=== PATIENT | male | born 1940 | race Caucasian/White ===

== ENCOUNTER → 2017-07-18 | Outpatient (CLI) | payer MEDICARE, OTHER ==
[2016-01-06 10:38] VITALS: BP 141/74
[~2017-07-18] MED LIST: CO Q-10200 MG PO; HCTZ 25MG25 MG PO; LEXAPRO20 MG PO; QUINAPRIL20 MG PO; SIMVASTATIN20 MG PO; TESTOLIN50 MG/ML
== END ==
LOC: LAB 11:45
DX: Z12.11 Encounter for screening for malignant neoplasm of colon (principal)

== ENCOUNTER → 2017-11-19 | Outpatient (CLI) | payer MEDICARE, OTHER ==
[2016-01-06 10:38] VITALS: BP 141/74
== END ==
LOC: LAB 09:10
PROVIDERS: Internal Medicine
DX: I10 Essential (primary) hypertension (principal); I34.1 Nonrheumatic mitral (valve) prolapse

== ENCOUNTER → 2018-08-21 | Outpatient (CLI) | payer MEDICARE, OTHER ==
[2016-01-06 10:38] VITALS: BP 141/74
[2018-08-21 16:33] LABS: BASO # 0.1 (0.02-0.10); EOS # 0.2 (0.04-0.40); EOS % 2.4 % (0.0-4.0); HEMATOCRIT 43.8 % (42.0-52.0); HEMOGLOBIN 14.6 g/dL (13.5-18.0); MEAN CELL VOLUME 93 fl (78-100); MEAN CORPUSCULAR HEMOGLOBIN 31 pg (27-31); MEAN CORPUSCULAR HGB CONC 33 g/dL (33-37); MEAN PLATELET VOLUME 9.5 fl (7.4-10.4); MONO # 0.9 (0.20-0.80); NEU # 4.9 (1.40-6.50); PLATELET COUNT 235 K/mm3 (130-400); RED BLOOD COUNT 4.72 M/mm3 (4.20-5.60); RED CELL DISTRIBUTION WIDTH 12.9 % (11.5-14.5); WHITE BLOOD COUNT 8.1 K/mm3 (4.8-10.8)
[2018-08-21 16:39] LABS: ALBUMIN 4.4 g/dL (3.5-5.0); CALCIUM 9.4 mg/dL (8.4-10.2); POTASSIUM 4.5 mmol/L (3.6-5.0); TOTAL BILIRUBIN 0.8 mg/dL (0.2-1.3); TOTAL PROTEIN 8.1 g/dL (6.3-8.2)
[2018-08-21 17:49] LABS: ERYTHROCYTE SEDIMENTATION RATE 24 mm/hr (0-20)
== END ==
LOC: LAB 16:06
PROVIDERS: Internal Medicine
DX: Z12.5 Encounter for screening for malignant neoplasm of prostate (principal); I10 Essential (primary) hypertension; E78.2 Mixed hyperlipidemia; D64.9 Anemia, unspecified; R73.09 Other abnormal glucose

== ENCOUNTER → 2019-02-26 | Outpatient (CLI) | payer MEDICARE, OTHER ==
[2016-01-06 10:38] VITALS: BP 141/74
[2019-02-26 10:36] LABS: BASO # 0.1 (0.02-0.10); EOS # 0.1 (0.04-0.40); EOS % 1.4 % (0.0-4.0); HEMATOCRIT 43.2 % (42.0-52.0); HEMOGLOBIN 14.2 g/dL (13.5-18.0); LYMPH# 1.8 (1.50-4.00); MEAN CELL VOLUME 94 fl (78-100); MEAN CORPUSCULAR HEMOGLOBIN 31 pg (27-31); MEAN CORPUSCULAR HGB CONC 33 g/dL (33-37); MEAN PLATELET VOLUME 9.4 fl (7.4-10.4); MONO # 0.9 (0.20-0.80); NEU # 6.3 (1.40-6.50); PLATELET COUNT 238 K/mm3 (130-400); RED CELL DISTRIBUTION WIDTH 12.9 % (11.5-14.5); WHITE BLOOD COUNT 9.2 K/mm3 (4.8-10.8)
[2019-02-26 10:42] LABS: POTASSIUM 4.3 mmol/L (3.5-5.1)
[2019-02-26 10:43] LABS: ALBUMIN 3.9 g/dL (3.4-4.8)
[2019-02-26 10:44] LABS: CALCIUM 9.2 mg/dL (8.3-10.5)
[2019-02-26 10:45] LABS: TOTAL PROTEIN 7.4 g/dL (6.2-8.1)
[2019-02-26 10:47] LABS: TOTAL BILIRUBIN 1.2 mg/dL (0.2-1.2)
[2019-02-26 11:59] LABS: ERYTHROCYTE SEDIMENTATION RATE 20 mm/hr (0-20)
== END ==
LOC: LAB 10:07
PROVIDERS: Internal Medicine
DX: Z12.5 Encounter for screening for malignant neoplasm of prostate (principal); Z12.11 Encounter for screening for malignant neoplasm of colon; I10 Essential (primary) hypertension; E78.2 Mixed hyperlipidemia; D50.8 Other iron deficiency anemias; I34.1 Nonrheumatic mitral (valve) prolapse; R73.01 Impaired fasting glucose

== ENCOUNTER → 2020-04-04 | Outpatient (CLI) | payer MEDICARE, OTHER ==
[2016-01-06 10:38] VITALS: BP 141/74
[2020-04-04 09:19] LABS: BASO # 0.1 (0.02-0.10); EOS # 0.2 (0.04-0.40); EOS % 1.7 % (0.0-4.0); HEMATOCRIT 46.2 % (42.0-52.0); HEMOGLOBIN 15.1 g/dL (13.5-18.0); LYMPH# 1.9 (1.50-4.00); MEAN CELL VOLUME 94 fl (78-100); MEAN CORPUSCULAR HEMOGLOBIN 31 pg (27-31); MEAN CORPUSCULAR HGB CONC 33 g/dL (33-37); MEAN PLATELET VOLUME 9.4 fl (7.4-10.4); MONO # 0.9 (0.20-0.80); NEU # 7.1 (1.40-6.50); PLATELET COUNT 275 K/mm3 (130-400); RED BLOOD COUNT 4.92 M/mm3 (4.20-5.60); RED CELL DISTRIBUTION WIDTH 12.8 % (11.5-14.5); WHITE BLOOD COUNT 10.1 K/mm3 (4.8-10.8)
[2020-04-04 10:25] LABS: ALBUMIN 4.2 g/dL (3.4-4.8); POTASSIUM 4.9 mmol/L (3.5-5.1)
[2020-04-04 10:27] LABS: CALCIUM 9.2 mg/dL (8.3-10.5)
[2020-04-04 10:28] LABS: TOTAL PROTEIN 8.1 g/dL (6.2-8.1)
[2020-04-04 10:30] LABS: TOTAL BILIRUBIN 0.9 mg/dL (0.2-1.2)
[2020-04-04 10:34] LABS: MAGNESIUM 2.16 mg/dL (1.60-2.60)
[2020-04-04 11:52] LABS: ERYTHROCYTE SEDIMENTATION RATE 20 mm/hr (0-20)
[2020-04-04 16:59] LABS: TESTOSTERONE 487 ng/dL (221-716)
== END ==
LOC: LAB 08:59
PROVIDERS: Internal Medicine
DX: Z12.5 Encounter for screening for malignant neoplasm of prostate (principal); Z12.11 Encounter for screening for malignant neoplasm of colon; E23.0 Hypopituitarism; I10 Essential (primary) hypertension; E78.5 Hyperlipidemia, unspecified; D50.8 Other iron deficiency anemias; K90.9 Intestinal malabsorption, unspecified; R73.02 Impaired glucose tolerance (oral)

== ENCOUNTER 2020-08-26 09:16 | Emergency (ER) | payer MEDICARE, OTHER ==
[2020-08-26] MEDS ORDERED: SIMVASTATIN20 M1 PO (10:00)
[2020-08-26] MEDS ORDERED: ESCITALOPRAM20 MG PO (10:00)
[2020-08-26] MEDS ORDERED: VITAMIN D210 MCG (10:01)
[2020-08-26] MEDS ORDERED: VITAMIN A10000 UNIT (10:01)
[2020-08-26] MEDS ORDERED: FINASTERIDE5 M1 PO (10:01)
[2020-08-26] MEDS ORDERED: PHARMASSURE CHE30 MG (10:02)
[2020-08-26 10:19] LABS: HEMATOCRIT 42.2 % (42.0-52.0); HEMOGLOBIN 14.1 g/dL (13.5-18.0); MEAN CELL VOLUME 93 fl (78-100); MEAN CORPUSCULAR HEMOGLOBIN 31 pg (27-31); MEAN CORPUSCULAR HGB CONC 33 g/dL (33-37); MEAN PLATELET VOLUME 9.5 fl (7.4-10.4); PLATELET COUNT 227 K/mm3 (130-400); RED BLOOD COUNT 4.55 M/mm3 (4.20-5.60); RED CELL DISTRIBUTION WIDTH 12.9 % (11.5-14.5); WHITE BLOOD COUNT 8.5 K/mm3 (4.8-10.8)
[2020-08-26 10:52] LABS: ALBUMIN 3.8 g/dL (3.4-4.8)
[2020-08-26 10:53] LABS: POTASSIUM 4.5 mmol/L (3.5-5.1)
[2020-08-26 10:54] LABS: CALCIUM 8.7 mg/dL (8.3-10.5)
[2020-08-26 10:57] LABS: TOTAL BILIRUBIN 0.9 mg/dL (0.2-1.2)
[2020-08-26 11:00] LABS: LYMPHOCYTE 28 % (20-51); MONOCYTE 9 % (3-10); NEUTROPHILS 61 % (42-75)
[2020-08-26 11:02] LABS: URINE APPEARANCE HAZY; URINE BILIRUBIN NEGATIVE (NEGATIVE); URINE BLOOD NEGATIVE (NEGATIVE); URINE COLOR YELLOW; URINE GLUCOSE NEGATIVE (NEGATIVE); URINE KETONE NEGATIVE (NEGATIVE); URINE LEUKOCYTE ESTERASE NEGATIVE (NEGATIVE); URINE MUCUS PRESENT (NOT PRESENT); URINE NITRATE NEGATIVE (NEGATIVE); URINE PROTEIN(semi-quant) TRACE mg/dL (NEGATIVE); URINE UROBILINOGEN NORMAL (NORMAL)
[2020-08-26 13:30] VITALS: BP 174/87
== END 2020-08-26 14:29 | disposition short-term general hospital (02) ==
LOC: ED 09:16
PROVIDERS: Nurse Practitioner
DX: I44.0 Atrioventricular block, first degree (principal); R55 Syncope and collapse; E11.9 Type 2 diabetes mellitus without complications; E78.5 Hyperlipidemia, unspecified; F32.9 Major depressive disorder, single episode, unspecified; Z82.49 Family history of ischemic heart disease and other diseases of the circulatory system

== ENCOUNTER → 2021-10-05 | Outpatient (CLI) | payer MEDICARE, OTHER ==
[~2021-10-05] MED LIST changes: +ESCITALOPRAM20 MG PO; +FINASTERIDE5 M1 PO; +PHARMASSURE CHE30 MG; +SIMVASTATIN20 M1 PO; +VITAMIN A10000 UNIT; +VITAMIN D210 MCG
[2021-10-05 17:14] LABS: BASO # 0.06 K/mm3 (0.02-0.10); EOS # 0.11 K/mm3 (0.04-0.40); EOS % 0.9 % (0.0-4.0); HEMATOCRIT 40.8 % (42.0-52.0); HEMOGLOBIN 13.5 g/dL (13.5-18.0); LYMPH# 2.44 K/mm3 (1.50-4.00); MEAN CELL VOLUME 94 fl (78-100); MEAN CORPUSCULAR HEMOGLOBIN 31 pg (27-31); MEAN CORPUSCULAR HGB CONC 33 g/dL (33-37); MEAN PLATELET VOLUME 9.3 fl (7.4-10.4); PLATELET COUNT 218 K/mm3 (130-400); RED BLOOD COUNT 4.33 M/mm3 (4.20-5.60); RED CELL DISTRIBUTION WIDTH 12.5 % (11.5-14.5); WHITE BLOOD COUNT 12.2 K/mm3 (4.8-10.8)
[2021-10-05 17:20] LABS: POTASSIUM 4.2 mmol/L (3.5-5.1)
[2021-10-05 17:22] LABS: CALCIUM 9.3 mg/dL (8.3-10.5)
[2021-10-05 17:23] LABS: TOTAL PROTEIN 7.2 g/dL (6.2-8.1)
[2021-10-05 17:25] LABS: TOTAL BILIRUBIN 1.1 mg/dL (0.2-1.2)
[2021-10-06 18:01] LABS: TESTOSTERONE 289 ng/dL (221-716)
[2021-10-10 01:13] LABS: ADRENOCORTICOTROPIC HORMONE 14 pg/mL (5-27)
== END ==
LOC: LAB 16:49
PROVIDERS: Internal Medicine
DX: G90.09 Other idiopathic peripheral autonomic neuropathy (principal); E78.2 Mixed hyperlipidemia; K90.9 Intestinal malabsorption, unspecified; E74.89 Other specified disorders of carbohydrate metabolism; D64.9 Anemia, unspecified; I10 Essential (primary) hypertension; E23.0 Hypopituitarism; F33.0 Major depressive disorder, recurrent, mild; R73.03 Prediabetes

== ENCOUNTER → 2021-10-26 | Outpatient (CLI) | payer MEDICARE, OTHER ==
[2021-10-26 12:33] LABS: POTASSIUM 4.7 mmol/L (3.5-5.1)
[2021-10-26 12:34] LABS: CALCIUM 9.4 mg/dL (8.3-10.5)
[2021-10-26 12:40] LABS: MAGNESIUM 2.28 mg/dL (1.60-2.60)
[2021-10-27 01:18] LABS: FOLLICLE STIMULATING HORMONE 5.5 mIU/mL (1.0-12.0); LUTENIZING HORMONE 2.2 mIU/mL (0.6-12.1); PROLACTIN AMS 8.3 ng/mL (3.5-19.4)
== END ==
LOC: LAB 11:51
PROVIDERS: Internal Medicine
DX: G90.09 Other idiopathic peripheral autonomic neuropathy (principal); I10 Essential (primary) hypertension; E78.2 Mixed hyperlipidemia; R79.89 Other specified abnormal findings of blood chemistry

== ENCOUNTER → 2022-07-20 | Outpatient (CLI) | payer MEDICARE, OTHER ==
[2022-07-20 11:15] LABS: ALBUMIN 4.3 g/dL (3.4-4.8); BASO # 0.05 K/mm3 (0.02-0.10); EOS # 0.21 K/mm3 (0.04-0.40); EOS % 2.5 % (0.0-4.0); HEMATOCRIT 44.6 % (42.0-52.0); HEMOGLOBIN 14.8 g/dL (13.5-18.0); LYMPH# 1.92 K/mm3 (1.50-4.00); MEAN CELL VOLUME 95 fl (78-100); MEAN CORPUSCULAR HEMOGLOBIN 32 pg (27-31); MEAN CORPUSCULAR HGB CONC 33 g/dL (33-37); MEAN PLATELET VOLUME 9.7 fl (7.4-10.4); MONO # 0.67 K/mm3 (0.20-0.80); NEU # 5.46 K/mm3 (1.40-6.50); PLATELET COUNT 213 K/mm3 (130-400); POTASSIUM 4.4 mmol/L (3.5-5.1); RED BLOOD COUNT 4.68 M/mm3 (4.20-5.60); RED CELL DISTRIBUTION WIDTH 12.6 % (11.5-14.5); WHITE BLOOD COUNT 8.3 K/mm3 (4.8-10.8)
[2022-07-20 11:16] LABS: CALCIUM 9.8 mg/dL (8.3-10.5)
[2022-07-20 11:17] LABS: TOTAL PROTEIN 7.9 g/dL (6.2-8.1)
[2022-07-20 11:24] LABS: MAGNESIUM 2.27 mg/dL (1.60-2.60)
== END ==
LOC: LAB 10:35
PROVIDERS: Internal Medicine
DX: I10 Essential (primary) hypertension (principal); K90.9 Intestinal malabsorption, unspecified; E78.2 Mixed hyperlipidemia; Z12.5 Encounter for screening for malignant neoplasm of prostate; G90.09 Other idiopathic peripheral autonomic neuropathy

== ENCOUNTER → 2024-04-24 | Outpatient (CLI) | payer MEDICARE, OTHER ==
[2024-04-24 18:22] LABS: URINE APPEARANCE CLEAR (CLEAR); URINE COLOR YELLOW (YELLOW)
[2024-04-24 18:23] LABS: PH-URINE 5.5 (5.0 - 8.0); URINE BILIRUBIN NEGATIVE (NEGATIVE); URINE BLOOD NEGATIVE (NEGATIVE); URINE GLUCOSE NEGATIVE (NEGATIVE); URINE KETONE NEGATIVE (NEGATIVE); URINE LEUKOCYTE ESTERASE 1+ (NEGATIVE); URINE NITRATE NEGATIVE (NEGATIVE); URINE PROTEIN(semi-quant) NEGATIVE (NEGATIVE)
== END ==
LOC: LAB 09:49
PROVIDERS: Internal Medicine
DX: N39.0 Urinary tract infection, site not specified (principal)

== ENCOUNTER → 2024-05-14 | Outpatient (CLI) | payer MEDICARE, OTHER ==
[~2024-05-14] MED LIST changes: +Iohexol 300 - 100 ML VIAL IV ONE
[2024-05-14 14:32] LABS: BASO # 0.04 K/mm3 (0.02-0.10); EOS # 0.16 K/mm3 (0.04-0.40); EOS % 2.1 % (0.0-4.0); HEMATOCRIT 44.3 % (42.0-52.0); HEMOGLOBIN 14.4 g/dL (13.5-18.0); MEAN CELL VOLUME 95 fl (78-100); MEAN CORPUSCULAR HEMOGLOBIN 31 pg (27-31); MEAN CORPUSCULAR HGB CONC 33 g/dL (33-37); MEAN PLATELET VOLUME 9.4 fl (7.4-10.4); MONO # 0.76 K/mm3 (0.20-0.80); PLATELET COUNT 240 K/mm3 (130-400); RED BLOOD COUNT 4.66 M/mm3 (4.20-5.60); RED CELL DISTRIBUTION WIDTH 13.1 % (11.5-14.5); WHITE BLOOD COUNT 7.5 K/mm3 (4.8-10.8)
[2024-05-14 14:34] LABS: ALBUMIN 3.9 g/dL (3.4-4.8)
[2024-05-14 14:35] LABS: CALCIUM 9.3 mg/dL (8.3-10.5)
[2024-05-14 14:36] LABS: TOTAL PROTEIN 7.2 g/dL (6.2-8.1)
[2024-05-14 14:38] LABS: TOTAL BILIRUBIN 1.2 mg/dL (0.2-1.2)
[2024-05-14 14:43] LABS: MAGNESIUM 2.09 mg/dL (1.60-2.60)
== END ==
LOC: RAD 14:10
PROVIDERS: Internal Medicine
DX: N32.89 Other specified disorders of bladder (principal); N40.0 Benign prostatic hyperplasia without lower urinary tract symptoms; J90 Pleural effusion, not elsewhere classified; E27.8 Other specified disorders of adrenal gland; K57.90 Diverticulosis of intestine, part unspecified, without perforation or abscess without bleeding; I10 Essential (primary) hypertension
CPT/HCPCS: Q9967

== ENCOUNTER 2024-05-15 09:16 | Emergency (ER) | payer MEDICARE, OTHER ==
[~2024-05-15] VITALS: Ht 185.4 cm; Wt 84.5 kg
[~2024-05-15 09:16] MED LIST changes: -Iohexol 300 - 100 ML VIAL IV ONE
[2024-05-15 11:48] LABS: URINE WBC 0 /hpf (0-3)
[2024-05-15 11:59] LABS: PH-URINE 5.5 (5.0 - 8.0); URINE APPEARANCE CLEAR (CLEAR); URINE BILIRUBIN NEGATIVE (NEGATIVE); URINE BLOOD TRACE-INTACT (NEGATIVE); URINE COLOR DARK YELLOW (YELLOW); URINE GLUCOSE NEGATIVE (NEGATIVE); URINE KETONE NEGATIVE (NEGATIVE); URINE LEUKOCYTE ESTERASE NEGATIVE (NEGATIVE); URINE NITRATE NEGATIVE (NEGATIVE); URINE PROTEIN(semi-quant) NEGATIVE (NEGATIVE)
[2024-05-15] MEDS ORDERED: Sodium Phosphates Rectal Enema 133 ML BOTTLE RC ONE (13:15)
[2024-05-15] MEDS ORDERED: Polyethylene Glycol 3350 Powder 17 GM PACKET PO ONE (13:15)
[2024-05-15 14:15] LABS: BASO # 0.04 K/mm3 (0.02-0.10); EOS # 0.13 K/mm3 (0.04-0.40); EOS % 1.7 % (0.0-4.0); HEMATOCRIT 46.3 % (42.0-52.0); HEMOGLOBIN 15.3 g/dL (13.5-18.0); LYMPH# 2.11 K/mm3 (1.50-4.00); MEAN CELL VOLUME 95 fl (78-100); MEAN CORPUSCULAR HEMOGLOBIN 31 pg (27-31); MEAN CORPUSCULAR HGB CONC 33 g/dL (33-37); MEAN PLATELET VOLUME 9.8 fl (7.4-10.4); MONO # 0.67 K/mm3 (0.20-0.80); NEU # 4.79 K/mm3 (1.40-6.50); PLATELET COUNT 227 K/mm3 (130-400); WHITE BLOOD COUNT 7.8 K/mm3 (4.8-10.8)
[2024-05-15 16:25] VITALS: BP 157/93
== END 2024-05-15 16:28 | disposition home or self-care (01) ==
LOC: ED 09:16
PROVIDERS: Family Medicine
DX: R33.9 Retention of urine, unspecified (principal); K59.00 Constipation, unspecified; Z95.0 Presence of cardiac pacemaker
CPT/HCPCS: J7120

== ENCOUNTER → 2024-05-25 | Outpatient (CLI) | payer MEDICARE, OTHER ==
[2024-05-25 16:11] LABS: BASO # 0.04 K/mm3 (0.02-0.10); EOS # 0.29 K/mm3 (0.04-0.40); EOS % 3.7 % (0.0-4.0); HEMOGLOBIN 14.1 g/dL (13.5-18.0); LYMPH# 2.11 K/mm3 (1.50-4.00); MEAN CELL VOLUME 95 fl (78-100); MEAN CORPUSCULAR HEMOGLOBIN 31 pg (27-31); MEAN CORPUSCULAR HGB CONC 33 g/dL (33-37); MEAN PLATELET VOLUME 9.7 fl (7.4-10.4); NEU # 4.48 K/mm3 (1.40-6.50); PLATELET COUNT 220 K/mm3 (130-400); RED BLOOD COUNT 4.52 M/mm3 (4.20-5.60); RED CELL DISTRIBUTION WIDTH 13.3 % (11.5-14.5); WHITE BLOOD COUNT 7.8 K/mm3 (4.8-10.8)
[2024-05-25 16:18] LABS: ALBUMIN 3.8 g/dL (3.4-4.8)
[2024-05-25 16:23] LABS: PROTHROMBIN TIME 10.4 SECONDS (9.0-12.0)
[2024-05-25 16:28] LABS: MAGNESIUM 2.14 mg/dL (1.60-2.60)
== END ==
LOC: LAB 15:53
PROVIDERS: Internal Medicine
DX: Z01.811 Encounter for preprocedural respiratory examination (principal); J90 Pleural effusion, not elsewhere classified; Z95.0 Presence of cardiac pacemaker